=== PATIENT | male | born 1960 | race Caucasian/White ===

== ENCOUNTER 2019-05-01 22:09 | Emergency (ER) | payer OTHER ==
[~2019-05-01] VITALS: Ht 167.6 cm; Wt 83.4 kg
[~2019-05-01 22:09] MED LIST: IBUP-1542 PO
[2019-05-01 22:17] VITALS: Ht 167.6 cm; Wt 83.4 kg
[2019-05-01] MEDS ORDERED: KETOROLAC 30 MG INJ IM STA (22:45)
[2019-05-02 00:35] VITALS: BP 164/95; PULSE 71; RESP 16
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
== END 2019-05-02 00:36 | disposition home or self-care (01) ==
LOC: FTE 22:09
DX: S09.90XA Unspecified injury of head, initial encounter (principal); R51 Headache; V49.49XA Driver injured in collision with other motor vehicles in traffic accident, initial encounter
CPT/HCPCS: 70450; 96372; 99285; J1885